=== PATIENT | female | born 1995 | race Two or more races ===

== ENCOUNTER 2021-02-22 19:08 | Emergency (ER) | payer OTHER, SELFPAY ==
--- NOTE | ~2021-02-22 | XR_ITS ---
EXAMINATION: XR HAND, LEFT CLINICAL INFORMATION: Injury to left hand. COMPARISON: None TECHNIQUE: PA, lateral, and oblique views of the left hand. FINDINGS: The bones and soft tissues are normal. No fracture. Alignment is anatomic. Joint spaces are maintained. No erosions or soft tissue calcifications. XR/XR hand LT min 3V IMPRESSION: Normal left hand.
[2021-02-22 19:53] VITALS: BP 121/83; PULSE 80; RESP 18; TEMP 36.8; O2SAT 96; BMI 21.1
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
== END 2021-02-22 21:41 | disposition home or self-care (01) ==
PROVIDERS: Emergency Provider Internal Medicine
DX: S50.11XA Contusion of right forearm, initial encounter (principal); S39.012A Strain of muscle, fascia and tendon of lower back, initial encounter; S60.312A Abrasion of left thumb, initial encounter; V89.2XXA Person injured in unspecified motor-vehicle accident, traffic, initial encounter; Y93.9 Activity, unspecified; Y92.410 Unspecified street and highway as the place of occurrence of the external cause; Y99.9 Unspecified external cause status
CPT/HCPCS: 73130; 99283